=== PATIENT | male | born 1995 | race Caucasian/White ===

== ENCOUNTER 2017-01-20 11:23 | Emergency (ER) | payer OTHER ==
[2017-01-20 11:44] VITALS: BP 129/75; PULSE 72; TEMP 97.6; BMI 22.8
--- NOTE | 2017-01-20 12:48 | PDOC ---
History of Present Illness - General Chief Complaint: Pain Stated Complaint: TOOTHACHE Time Seen by Provider: 01/20/17 11:57 History Source: Patient Exam Limitations: No Limitations - History of Present Illness Initial Comments: 01/20/17 12:43 Pt. is a 21 y/o male with no PMH presents to the ED c/o tooth pain for three days. Pt. states that he believes his wisdom tooth is coming in. States that the tooth pain woke him from sleep. Admits to headaches, throbbing pain which is not relieved with Motrin. He tried contacting his dentist, but did not receive a phone call back. Denies fevers, chills, nausea, vomiting, or drainage from his mouth. Past History - Travel Traveled outside of the country in the last 30 days: No Close contact w/someone who was outside of country & ill: No - Past Medical History Allergies/Adverse Reactions: Allergies Allergy/AdvReac Type Severity Reaction Status Date / Time Penicillins Allergy Mild Verified 01/20/17 11:41 Home Medications: Ambulatory Orders Tramadol HCl/Acetaminophen [Tramadol-Acetaminophn 37.5-325] 1 each PO QID PRN # 12 tablet MDD 4 01/20/17 Asthma: Yes - Psycho/Social/Smoking Cessation Hx Anxiety: No Suicidal Ideation: No Smoking Status: No Smoking History: Never smoked Have you smoked in the past 12 months: No Number of Cigarettes Smoked Daily: 0 Information on smoking cessation initiated: No 'Breaking Loose' booklet given: 05/02/15 Hx Alcohol Use: No Drug/Substance Use Hx: No Substance Use Type: None Review of Systems - Review of Systems Able to Perform ROS?: Yes Is the patient limited Lebanese proficient: No Constitutional: No: Chills, Fever, Weakness HEENTM: Yes: Mouth Pain, Dental Problems. No: Eye Pain, Nose Congestion, Throat Pain, Throat Swelling Respiratory: No: Cough, Shortness of Breath ABD/GI: No: Diarrhea, Nausea, Vomiting Integumentary: No: Change in Color, Lumps, Rash Neurological: Yes: Headache. No: Numbness, Paresthesia, Tingling, Weakness *Physical Exam - Vital Signs Last Vital Signs Temp Pulse Resp BP Pulse Ox 97.6 F 72 18 129/75 100 01/20/17 11:42 01/20/17 11:42 01/20/17 11:42 01/20/17 11:42 01/20/17 11:42 - Physical Exam General Appearance: Yes: Nourished, Appropriately Dressed, Mild Distress HEENT: positive: EOMI, BALJINDER, TMs Normal, Pharynx Normal, Other ([place] tooth breaking through the gum of the R bottom jaw. No signs of infection or fluctuant masses. No swelling of the gum or parotid gland). negative: Tonsillar Exudate, Tonsillar Erythema, Excessive drooling Neck: positive: Trachea midline, Supple. negative: Tender, Rigid, Lymphadenopathy (R), Lymphadenopathy (L) Lymphatic: negative: Adenopathy, Tenderness Integumentary: negative: Rash, Swelling, Ecchymosis Neurologic: positive: conservation or heritage architect II-XII NML intact, Fully Oriented, Alert, Normal Mood/ Affect, Normal Response, Motor Strength /5 Medical Decision Making - Medical Decision Making 01/20/17 15:32 Pt. is a 21 y/o male with no PMH presenting with tooth pain x 3 days. Pt. has no evidence of infection of the tooth (R bottom wisdom tooth) or surrounding gum. No abscess, fevers or chills. Will discharge home at this time with pain management (tramadol) and follow up with his dentist in the next three days. DIRECTOR OF RECREATION THERAPY was queried, no narcotic use, Reference #: [id number] *DC/Admit/Observation/Transfer Diagnosis at time of Disposition: Tooth pain - Discharge Dispostion Disposition: HOME Condition at time of disposition: Stable Admit: No - Prescriptions Prescriptions: Tramadol HCl/Acetaminophen [Tramadol-Acetaminophn 37.5-325] 1 each PO QID PRN # 12 tablet MDD 4 PRN Reason: Pain - Referrals Referrals: Shay Santos MD [Primary Care Provider] - - Patient Instructions Additional Instructions: Your wisdom tooth is coming in. On your exam today, there was no signs of infection. You were prescribed Tramadol as needed for pain. Do not drive after taking this medication as it may make you drowsy. You may also gain symptomatic relief from warm water and salt gargles, drinking cool drinks such as milkshakes , and placing ice packs to the effected area. Follow up with your dentist as soon as possible. There is a urgent care for dental issues. The name and location are as follows: [facility] [address] [facility] [phone] Return to the ED if you develop signs of infection such as fevers, chills, nausea, vomiting, or if the pain is worse, or if there are any changes in your symptoms.
== END 2017-01-20 13:01 | disposition home or self-care (01) ==
LOC: JERFT 11:23
DX: K08.89 Other specified disorders of teeth and supporting structures (principal)
CPT/HCPCS: 99281-25

== ENCOUNTER 2018-07-28 17:27 | Emergency (ER) | payer OTHER ==
--- NOTE | 2018-07-28 17:40 | PDOC ---
Rapid Medical Evaluation Chief Complaint: Pain, Acute Time Seen by Provider: 07/28/18 17:35 Medical Evaluation: Allergies Allergy/AdvReac Type Severity Reaction Status Date / Time Penicillins Allergy Mild Verified 07/28/18 17:33 07/28/18 17:36 I have performed a brief in-person evaluation of this patient. The patient presents with a chief complaint of:s/p electrocution 6days ago stepped on Space heater cord and sustained a shock. was seen by PMD , was given Tramadol and Cyclobenzaprine. No relief. Pertinent physical exam findings: walks with limp, I have ordered the following: LSSpine The patient will proceed to the ED for further evaluation. 07/28/18 17:39 07/28/18 17:39 Discharge Disposition - Referrals Referrals: Shay Santos MD [Primary Care Provider] - - Patient Instructions - Post Discharge Activity
[2018-07-28 17:41] VITALS: BP 123/72; PULSE 100; TEMP 98; BMI 23.6
[2018-07-28] MEDS ORDERED: predniSONE 20 MG TABLET (UD) PO ONE (18:30)
[2018-07-28] MEDS ORDERED: predniSONE 20 MG TABLET (UD) ONE (18:32)
--- NOTE | 2018-07-28 18:36 | PDOC ---
History of Present Illness - General Chief Complaint: Pain, Acute Stated Complaint: RIGHT LEG PAIN Time Seen by Provider: 07/28/18 17:35 History Source: Patient Exam Limitations: No Limitations - History of Present Illness Initial Comments: 07/28/18 19:11 Patient is a 23-year-old male with no past medical history who presents to the emergency department today for right leg pain. Patient states that approximately 6 days ago he was electrocuted by a uncoiled wire from a space heater. He states he was wearing his shoes when this happened and the shoe was burned the bottom. He states he saw his primary care doctor for his right likely diagnosed with back pain and give tramadol and Flexeril however these medications have not been working. He states that now he feels tingling up the leg into the right mid thigh. He states that this also hurts and he has been walking with a limp. Denies numbness to the extremity, weakness of the extremities, fever, bladder bowel incontinence, saddle anesthesia. Past History - Travel Traveled outside of the country in the last 30 days: No Close contact w/someone who was outside of country & ill: No - Past Medical History Allergies/Adverse Reactions: Allergies Allergy/AdvReac Type Severity Reaction Status Date / Time Penicillins Allergy Mild Verified 07/28/18 17:33 Home Medications: Ambulatory Orders Methylprednisolone [Medrol Dose Rainer] 4 mg PO ASDIR #21 tablet 07/28/18 Tramadol HCl 50 mg PO BID #10 tablet MDD 2 07/28/18 Asthma: Yes COPD: No - Immunization History Immunization Up to Date: Yes - Suicide/Smoking/Psychosocial Hx Smoking Status: No Smoking History: Never smoked Have you smoked in the past 12 months: No Number of Cigarettes Smoked Daily: 0 'Breaking Loose' booklet given: 05/02/15 Hx Alcohol Use: No Drug/Substance Use Hx: No Substance Use Type: None Review of Systems - Review of Systems Able to Perform ROS?: Yes Comments:: 07/28/18 19:13 CONSTITUTIONAL: Absent: fever, chills, diaphoresis, generalized weakness, malaise, loss of appetite HEENT: Absent: rhinorrhea, nasal congestion, throat pain, throat swelling, difficulty swallowing, mouth swelling, ear pain, eye pain, visual Changes CARDIOVASCULAR: Absent: chest pain, loss of consciousness, palpitations, irregular heart rate, peripheral edema RESPIRATORY: Absent: cough, shortness of breath, dyspnea with exertion, orthopnea, wheezing, stridor, hemoptysis GASTROINTESTINAL: Absent: abdominal pain, abdominal distension, nausea, vomiting, diarrhea, constipation, melena, hematochezia GENITOURINARY: Absent: dysuria, frequency, urgency, hesitancy, hematuria, flank pain, genital pain MUSCULOSKELETAL: Absent: myalgia, arthralgia, joint swelling SKIN: Absent: rash, itching, pallor HEMATOLOGIC/IMMUNOLOGIC: Absent: easy bleeding, easy bruising, lymphadenopathy, frequent infections ENDOCRINE: Absent: unexplained weight gain, unexplained weight loss, heat intolerance, cold intolerance NEUROLOGIC: Present: parethesia to the R leg Absent: headache, focal weakness or paresthesias, dizziness, unsteady gait, seizure, mental status changes, bladder or bowel incontinence PSYCHIATRIC: Absent: anxiety, depression, suicidal or homicidal ideation, hallucinations. Is the patient limited Bangladeshi proficient: No *Physical Exam - Vital Signs Last Vital Signs Temp Pulse Resp BP Pulse Ox 98.0 F 100 H 18 123/72 97 07/28/18 17:34 07/28/18 17:34 07/28/18 17:34 07/28/18 17:34 07/28/18 17:34 - Physical Exam Comments: 07/28/18 19:14 GENERAL: Well developed, well nourished. Awake and alert. No acute distress. NECK: Supple. Full ROM. No JVD. Carotid pulses 2+ and symmetric, without bruits. No thyromegaly. No lymphadenopathy. Normal range of motion at all joints. No bony deformities or tenderness. No CVA tenderness. EXTREMITIES: No cyanosis. No clubbing. No edema. No calf tenderness. SKIN: No evidence of entrance or exit wound. Warm and dry. Normal capillary refill. No rashes. No jaundice. NEUROLOGICAL: Alert, awake, appropriate. Cranial nerves 2-12 intact. No deficits to light touch and temperature in face, upper extremities and lower extremities. Decreased two point discrimination on the top of the R foot. No motor deficits in the in face, upper extremities and lower extremities. Normoreflexic in the upper and lower extremities. Normal speech. Toes are down-going bilaterally. Gait is normal without ataxia. PSYCHIATRIC: Cooperative. Good eye contact. Appropriate mood and affect. Moderate Sedation - Procedure Monitoring Vital Signs: Procedure Monitoring Vital Signs Temperature 98.0 F 07/28/18 17:34 Pulse Rate 100 H 07/28/18 17:34 Respiratory Rate 18 07/28/18 17:34 Blood Pressure 123/72 07/28/18 17:34 O2 Sat by Pulse Oximetry (%) 97 07/28/18 17:34 Medical Decision Making - Medical Decision Making 07/28/18 19:15 Patient is a 23-year-old male who presents emergency Department with right leg pain status post electrocution 6 days ago. On exam patient with decreased 2 point discretion to the top of the right foot. He also states that he can feel a sensation traveling up his leg when he touched his foot. Patient walking with gait favoring his left leg. [facility] is negative for fracture, spinal misalignment. I suspect patient has nerve damage after electrocution 6 days ago. We'll prescribe prednisone and give crutches to help this pain. Refer to neurology. Discharge home I discussed the physical exam findings, ancillary test results and final diagnoses with the patient. I answered all of the patient's questions. The patient was satisfied with the care received and felt comfortable with the discharge plan and treatment plan. The Patient agrees to follow up with the primary care physician/specialist within 24-72 hours. Return precautions were given. *DC/Admit/Observation/Transfer Diagnosis at time of Disposition: Right leg pain - Discharge Dispostion Disposition: HOME Condition at time of disposition: Stable Decision to Admit order: No - Prescriptions Prescriptions: Methylprednisolone [Medrol Dose Rainer] 4 mg PO ASDIR #21 tablet Tramadol HCl 50 mg PO BID #10 tablet MDD 2 - Referrals Referrals: Shay Santos MD [Primary Care Provider] - Tommy Garcia MD [Staff Physician] - Dayne Partida MD [Staff Physician] - John Heath DO [Staff Physician] - - Patient Instructions Printed Discharge Instructions: Neuropathic Pain Additional Instructions: You most likely has nerve pain as a result of your electrocution 6 days ago. Please take the prednisone as prescribed. The instructions are in the package. He may continue to take tramadol as needed for breakthrough pain. Do not drink alcohol or drive after taking this medication as it may make you sleepy. Please follow up with neurology as soon as possible. A few referrals have been provided. Please use the crutches to help with walking. Return to the emergency department for worsening pain, loss of sensation tear leg, or if you have any changes in your symptoms. - Post Discharge Activity Forms/Work/School Notes: Back to Work
== END 2018-07-28 18:40 | disposition home or self-care (01) ==
LOC: JERFT 17:27
DX: M79.2 Neuralgia and neuritis, unspecified (principal); W86.0XXA Exposure to domestic wiring and appliances, initial encounter; Y93.89 Activity, other specified; Y92.018 Other place in single-family (private) house as the place of occurrence of the external cause; Y99.8 Other external cause status
CPT/HCPCS: 72100-TC-FY; 99281-25